=== PATIENT | male | born 1965 | race Caucasian/White ===

== ENCOUNTER → 2024-07-28 | Outpatient (CLI) | payer OTHER, SELFPAY ==
--- NOTE | 2024-07-28 08:00 | MRI_ITS ---
PROCEDURE: SPINE CERVICAL (ROUTINE) TECHNIQUE: Noncontrast cervical spine MRI. COMPARISON: None. FINDINGS: Vertebrae: Cervical vertebral body heights are preserved. Bone marrow signal is unremarkable. Alignment: Normal. No spondylolisthesis. Spinal Cord: Cervical spinal cord is of normal size and signal intensities. Structures at the foramen magnum are unremarkable. C2-3: Disc osteophyte complex causing mild canal stenosis and mild left neural foraminal narrowing C3-4: Disc osteophyte complex causing severe canal stenosis and moderate bilateral neural foraminal narrowing C4-5: Disc osteophyte complex causing mild canal stenosis C5-6: Disc osteophyte complex causing moderate canal stenosis C6-7: Unremarkable C7-T1: Unremarkable MRI/Spine Cervical (Routine) IMPRESSION: Multilevel degenerative changes through the cervical spine most severe at the C 3/4 level. Reading [facility]
== END | disposition home or self-care (01) ==
PROVIDERS: PCP Internal Medicine; Referring Provider Internal Medicine; Visit Provider Internal Medicine
DX: R20.0 Anesthesia of skin (principal)
CPT/HCPCS: 72141